=== PATIENT | female | born 1980 | race American Indian/Alaskan Native ===

== ENCOUNTER 2018-06-29 19:33 | Emergency (ER) | payer MEDICARE, MEDICAID ==
[2018-06-29] MEDS ORDERED: ATIVAN ONE (20:08)
[2018-06-29 20:14] LABS: Hematocrit 41.1 % (30.3-42.9); Hemoglobin 13.8 gm/dl (10.1-14.3); Mean Corpuscular HGB Conc 34 % (30-34); Mean Corpuscular Volume 93 fl (79-97); Platelet Count 301 K/mm3 (140-440); Red Blood Count 4.42 M/mm3 (3.65-5.03); Red Cell Distribution Width 13.9 % (13.2-15.2)
--- NOTE | 2018-06-29 20:23 | Emergency Department Report ---
ED Seizure HPI - General Chief Complaint: Seizure Stated Complaint: SEIZURE Time Seen by Provider: 06/29/18 19:33 Source: patient Mode of arrival: Stretcher Limitations: No Limitations - History of Present Illness Initial Comments: She is a 37-year-old female that presents emergent with seizure activity. Seizure activity was witnessed by family. Family states that the patient was standing in the living room and began having a seizure standing and fell and hit her head. Patient has a known seizure history. Patient states that she is taking her medications as directed. Patient states she has occasional seizures without cause. Patient denies pain. Patient complains of headache. Patient denies chest pain or shortness of breath. She was brought in by EMS. Report received from EMS. Patient denies fever chills. Patient denies missed medica tions. Patient denies drug use. Patient denies alcohol use. MD Complaint: seizure -: Sudden Description of Episode: loss of consciousness, tonic-clonic movement, post-event confusion -: second(s) Witnessed:: Yes Trauma: Yes (head injury) Seizure History: known seizure disorder, compliant with medication Place: home Possible Precipitating Event: none Associated Symptoms: denies other symptoms, confusion. denies: chest pain, cough, diaphoresis, fever/chills, loss of appetite, malaise, rash, shortness of breath, syncope, weakness, tongue injury, shoulder dislocation Treatments Prior to Arrival: none - Related Data Allergies Allergy/AdvReac Type Severity Reaction Status Date / Time No Known Allergies Allergy Verified 06/29/18 19:40 ED Review of Systems ROS: Stated complaint: SEIZURE Other details as noted in HPI Constitutional: denies: chills, fever Eyes: denies: eye pain, eye discharge, vision change ENT: denies: ear pain, throat pain Respiratory: denies: cough, shortness of breath, wheezing Cardiovascular: denies: chest pain, palpitations Endocrine: no symptoms reported Gastrointestinal: denies: abdominal pain, nausea, diarrhea Genitourinary: denies: urgency, dysuria, discharge Musculoskeletal: denies: back pain, joint swelling, arthralgia Skin: denies: rash, lesions Neurological: headache. denies: weakness, paresthesias Psychiatric: denies: anxiety, depression Hematological/Lymphatic: denies: easy bleeding, easy bruising ED Past Medical Hx - Past Medical History Previous Medical History?: Yes Hx Seizures: Yes - Surgical History Past Surgical History?: No - Family History Family history: no significant - Social History Smoking Status: Never Smoker Substance Use Type: Marijuana ED Physical Exam - General Limitations: No Limitations General appearance: alert, in no apparent distress - Head Head exam: Present: atraumatic, normocephalic - Eye Eye exam: Present: normal appearance, PERRL, EOMI Pupils: Present: normal accommodation - ENT ENT exam: Present: mucous membranes moist - Neck Neck exam: Present: normal inspection. Absent: tenderness, meningismus - Respiratory Respiratory exam: Present: normal lung sounds bilaterally. Absent: respiratory distress, wheezes, rales - Cardiovascular Cardiovascular Exam: Present: regular rate, normal rhythm. Absent: systolic murmur, diastolic murmur, rubs, gallop - GI/Abdominal GI/Abdominal exam: Present: soft, normal bowel sounds. Absent: distended, tenderness - Extremities Exam Extremities exam: Present: normal inspection, full ROM - Back Exam Back exam: Present: normal inspection, full ROM - Neurological Exam Neurological exam: Present: alert, oriented X3 - Psychiatric Psychiatric exam: Present: normal affect, normal mood - Skin Skin exam: Present: warm, dry, intact, normal color. Absent: rash ED Course Vital Signs 06/29/18 06/29/18 06/29/18 19:55 20:15 22:15 Temperature 98 F 98.5 F Pulse Rate 81 92 H 93 H Respiratory 16 19 16 Rate Blood Pressure 126/81 139/73 116/74 [Left] O2 Sat by Pulse 100 100 97 Oximetry 06/30/18 00:00 Temperature Pulse Rate 83 Respiratory 16 Rate Blood Pressure 135/79 [Left] O2 Sat by Pulse 99 Oximetry - Reevaluation(s) Reevaluation #1: Initial evaluation. Patient has a history of seizures and is taking medications properly. Due to head injury, we'll scan her head. 06/29/18 19:35 Resting comfortably, no seizure activity while in ER. Will repeat patient's be MP due to utilized sample and hyper kalemia 06/29/18 23:36 Potassium normal. Patient stable for discharge. Patient to be discharged home. Patient given discharge instructions. Patient given return to ER instructions. Patient given medication instructions. Patient was understanding of all structures. Patient agrees with plan of care and discharge. 06/30/18 00:37 ED Medical Decision Making - Lab Data Result diagrams: 06/29/18 19:56 06/29/18 23:48 - Radiology Data Radiology results: report reviewed CT head negative. - Medical Decision Making She is a 37-year-old female presents emergency with seizure activity. Patient has no seizure history. Patient comply with medications. Patient labs unremarkable except for falsely elevated potassium and repeat normal. Patient drug tox positive for THC. Patient's CT the head negative. Patient CT done for head injury. Patient stable for discharge. Patient to be discharged home. Patient instructed to follow up with neurologist as soon as possible. - Differential Diagnosis sz. . Breakthrough seizure. Critical Care Time: No Critical care attestation.: If time is entered above; I have spent that time in minutes in the direct care of this critically ill patient, excluding procedure time. ED Disposition Clinical Impression: Seizure-like activity, History of seizures, Abnormal blood chemistry Head injury Qualifiers: Encounter type: initial encounter Qualified Code(s): S09.90XA - Unspecified injury of head, initial encounter Disposition: DC- TO HOME OR SELFCARE Is pt being admited?: No Does the pt Need Aspirin: No Condition: Stable Instructions: Epilepsy (ED), Recurrent Seizures Adult (ED) Additional Instructions: Should follow up with primary care in 2-3 days. Patient to return to ER if condition worsens. Patient to follow up with neurologist in 2-3 days. Patient to avoid driving. Patient to rest. Patient take all medicines as directed. Referrals: ALVAREZ HERRERA MD [Primary Care Provider] - 2-3 Days Forms: Accompanied Note, Work/School Release Form(ED) Time of Disposition: 00:41
[2018-06-29 20:33] LABS: BUN/Creatinine Ratio 18; Blood Urea Nitrogen 11 mg/dL (7-17); Calcium 8.9 mg/dL (8.4-10.2); Hemolysis Index 341
--- NOTE | 2018-06-29 20:39 | Cat Scan Report ---
FINAL REPORT EXAM: CT HEAD/BRAIN WO CON HISTORY: head injury, PT WAS VERY AMS, POOR HISTORIAN. TECHNIQUE: CT head without contrast PRIORS: None. FINDINGS: No acute intra-axial or extra-axial hemorrhage is identified. There is no evidence of midline shift or mass effect. The ventricles and sulci are within normal limits. Ambriz-white matter differentiation is intact. No acute parenchymal abnormalities seen. Bony calvarium is grossly intact. Visualized portions of the mastoids and paranasal sinuses are unre markable. IMPRESSION: Negative CT head
[2018-06-29 23:08] LABS: Amphetamine Screen,Urine PRESUMPTIVE NEGATIVE; Benzodiazepines Screen,Urine PRESUMPTIVE NEGATIVE; Cocaine Screen,Urine PRESUMPTIVE NEGATIVE; Methadone Screen,Urine PRESUMPTIVE NEGATIVE; Opiate Screen,Urine PRESUMPTIVE NEGATIVE
[2018-06-29 23:21] LABS: Cannabinoid Screen,Urine PRESUMPTIVE POSITIVE
[2018-06-30 00:13] LABS: BUN/Creatinine Ratio 18; Blood Urea Nitrogen 9 mg/dL (7-17); Calcium 9.2 mg/dL (8.4-10.2); Hemolysis Index 8
[2018-06-30 00:44] VITALS: BP 135/79
== END 2018-06-30 01:13 | disposition home or self-care (01) ==
LOC: ED 19:33
DX: S09.90XA Unspecified injury of head, initial encounter (principal); G43.909 Migraine, unspecified, not intractable, without status migrainosus; R79.9 Abnormal finding of blood chemistry, unspecified; F12.10 Cannabis abuse, uncomplicated; W18.30XA Fall on same level, unspecified, initial encounter; Y93.89 Activity, other specified; Y92.89 Other specified places as the place of occurrence of the external cause; Y99.8 Other external cause status
CPT/HCPCS: 36415; 70450; 80048; 80307; 82962; 84703; 85027; 99285; G0480; 80320; J2060